=== PATIENT | male | born 1950 | race Caucasian/White ===

== ENCOUNTER 2022-12-27 13:53 | Inpatient (IN) | payer OTHER ==
[~2022-12-27] VITALS: Ht 177.8 cm; Wt 93.6 kg
[2022-12-27 15:37] LABS: Alanine Aminotransferase 23 U/L (7-40); Albumin 4.6 g/dL (3.2-4.8); Alkaline Phosphatase 109 U/L (46-116); Anion Gap 7 (5-15); Aspartate Aminotransferase 15 U/L (13-40); BUN/Creatinine Ratio 13.8 (10.0-20.0); Blood Urea Nitrogen 13 mg/dL (9-23); Calcium 9.6 mg/dL (8.5-10.1); Carbon Dioxide 27 mmol/L (20-30); Chloride 105 mmol/L (98-107); Glucose 96 mg/dL (74-106); Potassium 5.4 mmol/L (3.5-5.1); Sodium 139 mmol/L (136-145)
[2022-12-27 15:38] LABS: Bilirubin, Total 0.5 mg/dL (0.2-1.0)
[2022-12-27 15:41] LABS: Basophils # (auto) 0 10 ^3/uL (0-0.2); Basophils % (auto) 0.7 % (0.0-2.0); Eosinophils # (auto) 0.1 10 ^3/uL (0-0.8); Eosinophils % (auto) 2.3 % (0.0-7.0); Hematocrit 43.3 % (41.0-53.0); Hemoglobin 14.5 g/dL (13.5-17.5); Lymphocytes # (auto) 1.4 10 ^3/uL (0.4-5.4); Lymphocytes % (auto) 24.3 % (10.0-50.0); Mean Corpuscular Hemoglobin 31.6 pg (28.0-32.0); Mean Corpuscular Hgb Conc. 33.3 g/dL (32.0-36.0); Mean Corpuscular Volume 94.9 fL (80.0-100.0); Monocytes # (auto) 0.5 10 ^3/uL (0-1.3); Monocytes % (auto) 9.1 % (0.0-12.0); Neutrophils # (auto) 3.6 10 ^3/uL (1.6-8.6); Neutrophils % (auto) 63.6 % (37.0-80.0); Red Blood Cells 4.57 10^6/uL (4.5-5.90); Red Cell Distribution Width 14.3 % (11.8-14.3); White Blood Cell 5.7 10^3/uL (4.4-10.8)
[2022-12-27 16:15] LABS: Urine Bacteria NONE SEEN /hpf (None Seen); Urine Blood Negative /uL (Negative); Urine Clarity Clear (Clear); Urine Color Yellow (Yellow); Urine Hyaline Cast FEW /lpf (0 - 2); Urine Protein, UAD Negative (Negative); Urine Specific Gravity 1.014 (1.001-1.035); Urine Urobilinogen Normal (Negative); Urine WBC <1 /hpf (0 - 3)
[2022-12-27 21:15] VITALS: PULSE 76; RESP 16; O2SAT 95
[2022-12-27 21:32] LABS: Magnesium 1.8 mg/dL (1.6-2.6)
[2022-12-27] MEDS ORDERED: metroNIDAZOLE 500MG/100ML 100 ML IV ONE (22:00)
[2022-12-27] MEDS ORDERED: FUROSEMIDE 20 MG/2 ML VIAL IV ONE (22:00)
[2022-12-27] MEDS ORDERED: CALCIUM GLUC 1,000mg/50ml-NS 50 ML IV ONE (22:00)
[2022-12-27] MEDS ORDERED: ONDANSETRON HCL 4 MG/2 ML VIAL IV ONE (22:00)
[2022-12-27] MEDS ORDERED: SODIUM CHLORIDE 0.9% 1,000 ML IV ONE ×2 (22:00→22:30)
[2022-12-27] MEDS ORDERED: InsuLIN REG 1unit/0.01ml Soln (100units/ml) IV ONE (22:00)
[2022-12-27] MEDS ORDERED: PIPERACILLIN-TAZOB 3.375GM 100 ML IV ONE (22:00)
[2022-12-27] MEDS ORDERED: DEXTROSE (50%) 50ML SYRG IV ONE (22:00)
[2022-12-27] MEDS ORDERED: fentaNYL CITRATE 100 MCG/2 ML VL IV ONE (22:00)
[2022-12-27] MEDS ORDERED: MORPHINE SULFATE INJ 2 MG/ml SYRG IV PRN (22:30)
[2022-12-27] MEDS ORDERED: ONDANSETRON HCL 4 MG/2 ML VIAL IV PRN ×2 (22:30→23:30)
[2022-12-27] MEDS ORDERED: hydrALAZINE HCL 20 MG/ML VL IV PRN ×2 (22:45→23:30)
[2022-12-27 23:23] LABS: Chloride 104 mmol/L (98-107); Potassium 4.3 mmol/L (3.5-5.1); Sodium 137 mmol/L (136-145)
[2022-12-27 23:24] LABS: Anion Gap 7 (5-15); Calcium 9.5 mg/dL (8.7-10.4); Carbon Dioxide 26 mmol/L (20-30)
[2022-12-27 23:29] LABS: BUN/Creatinine Ratio 10.1 (10.0-20.0); Blood Urea Nitrogen 14 mg/dL (9-23); Glucose 107 mg/dL (74-106)
[2022-12-27] MEDS ORDERED: SODIUM CHLORIDE 0.9% 1,000 ML IV SCH (23:30)
[2022-12-27 23:34] LABS: Prothrombin Time 10.5 sec (9.3-11.8)
[2022-12-27] MEDS: MORPHINE SULFATE INJ 2 MG/ml SYRG IV PRN (23:44)
[2022-12-28] VITALS (8 sets, daily range): BP systolic 131–152; BP diastolic 64–85; PULSE 80–95; RESP 16–19; TEMP 98.3–99; O2SAT 94–98
[2022-12-28] MEDS ORDERED: AMLO1TAB22 PO (05:05)
[2022-12-28] MEDS ORDERED: OME20GT GT (05:05)
[2022-12-28] MEDS ORDERED: METO-158 PO (05:05)
[2022-12-28] MEDS ORDERED: LOSA25TA15 PO (05:05)
[2022-12-28] MEDS ORDERED: PIPERACILLIN-TAZOB 3.375GM 100 ML IV SCH (06:00)
[2022-12-28] MEDS: metroNIDAZOLE 500MG/100ML 100 ML IV SCH ×2 (06:41→21:30)
[2022-12-28 07:26] LABS: Basophils # (auto) 0 10 ^3/uL (0-0.2); Basophils % (auto) 0.6 % (0.0-2.0); Eosinophils # (auto) 0.1 10 ^3/uL (0-0.8); Eosinophils % (auto) 1.6 % (0.0-7.0); Hematocrit 38.6 % (41.0-53.0); Hemoglobin 12.5 g/dL (13.5-17.5); Lymphocytes # (auto) 1.5 10 ^3/uL (0.4-5.4); Mean Corpuscular Hemoglobin 31.3 pg (28.0-32.0); Mean Corpuscular Hgb Conc. 32.5 g/dL (32.0-36.0); Mean Corpuscular Volume 96.4 fL (80.0-100.0); Monocytes # (auto) 0.5 10 ^3/uL (0-1.3); Monocytes % (auto) 7.7 % (0.0-12.0); Neutrophils # (auto) 4.8 10 ^3/uL (1.6-8.6); Neutrophils % (auto) 69.1 % (37.0-80.0); Nucleated Red Blood Cells % 0.1 %; Red Cell Distribution Width 14.3 % (11.8-14.3); White Blood Cell 6.9 10^3/uL (4.4-10.8)
[2022-12-28 07:48] LABS: Alanine Aminotransferase 17 U/L (7-40); Albumin 3.8 g/dL (3.2-4.8); Alkaline Phosphatase 98 U/L (46-116); Anion Gap 9 (5-15); Aspartate Aminotransferase 12 U/L (13-40); BUN/Creatinine Ratio 16.4 (10.0-20.0); Bilirubin, Total 0.3 mg/dL (0.2-1.0); Blood Urea Nitrogen 19 mg/dL (9-23); Calcium 8.5 mg/dL (8.7-10.4); Carbon Dioxide 22 mmol/L (20-30); Chloride 108 mmol/L (98-107); Glucose 101 mg/dL (74-106); Potassium 4.9 mmol/L (3.5-5.1); Sodium 139 mmol/L (136-145); Total Protein 5.8 g/dL (5.7-8.2)
[2022-12-28] MEDS: D5W/SOD CHL 0.45% 1,000 ML IV SCH (11:58)
[2022-12-28] MEDS: cefTRIAXone 1GM/50ML D5W 50 ML IV SCH (11:59)
[2022-12-28] MEDS: MORPHINE SULFATE INJ 2 MG/ml SYRG IV PRN ×2 (12:00→21:19)
[2022-12-28] MEDS ORDERED: metroNIDAZOLE 500MG/100ML 100 ML IV ONE (14:22)
[2022-12-28] MEDS ORDERED: MEPERIDINE HCL (25 MG/ML) 1ML VIAL ONE (15:33)
[2022-12-28] MEDS ORDERED: fentaNYL CITRATE 100 MCG/2 ML VL ONE (15:33)
[2022-12-28] MEDS ORDERED: MIDAZOLAM HCL 2MG/2ML 2ml VIAL (1mg/ml) ONE (15:33)
[2022-12-28] MEDS ORDERED: LIDOCAINE 1%-Mpf/Epinephrine 1:200,000 30ml VIAL ONE (15:46)
[2022-12-28] MEDS ORDERED: LIDOCAINE 2% JELLY 11ml (GLYDO) ONE (16:05)
[2022-12-28] MEDS ORDERED: PROPOFOL 10 MG/ML 20 ML IV ONE (16:27)
[2022-12-28] MEDS ORDERED: DexAMETHasone SOD PHOS 10MG/1ML VIAL INJ ONE (16:27)
[2022-12-28] MEDS ORDERED: SUGAMMADEX 200mg/2ml Vial (100MG/ML) IV ONE (16:40)
[2022-12-28] MEDS ORDERED: ONDANSETRON HCL 4 MG/2 ML VIAL IV PRN (17:00)
[2022-12-28] MEDS ORDERED: MORPHINE SULFATE 4 MG/ML SYR/VIAL IV PRN (17:00)
[2022-12-28] MEDS ORDERED: MIDAZOLAM HCL 2MG/2ML 2ml VIAL (1mg/ml) IV PRN (17:00)
[2022-12-28] MEDS ORDERED: ePHEDrine SULFATE 50 MG/ML AMP IV PRN (17:00)
[2022-12-28] MEDS ORDERED: HYDROmorphone HCL 2 MG/ML VL/or syr ONE (17:01)
[2022-12-28] MEDS: HYDROmorphone HCL 2 MG/ML VL/or syr IV PRN ×4 (17:03→17:41)
[2022-12-28] MEDS: LABETALOL HCL 5 MG/ML 4ML SYRINGE IV PRN ×2 (17:16→17:40)
[2022-12-28 23:00] LABS: INR 1.05 (0.9-1.15)
[2022-12-29] MEDS: MORPHINE SULFATE INJ 2 MG/ml SYRG IV PRN ×2 (01:50→09:35)
[2022-12-29] MEDS: D5W/SOD CHL 0.45% 1,000 ML IV SCH (01:53)
[2022-12-29 05:00] VITALS: BP 147/93; PULSE 107; RESP 20; TEMP 98.6; O2SAT 95
[2022-12-29 05:41] LABS: Basophils # (auto) 0 10 ^3/uL (0-0.2); Basophils % (auto) 0.5 % (0.0-2.0); Eosinophils # (auto) 0 10 ^3/uL (0-0.8); Eosinophils % (auto) 0.5 % (0.0-7.0); Hematocrit 38.5 % (41.0-53.0); Hemoglobin 12.7 g/dL (13.5-17.5); Lymphocytes # (auto) 0.5 10 ^3/uL (0.4-5.4); Lymphocytes % (auto) 6.4 % (10.0-50.0); Mean Corpuscular Hemoglobin 31.6 pg (28.0-32.0); Mean Corpuscular Volume 95.7 fL (80.0-100.0); Monocytes # (auto) 0.1 10 ^3/uL (0-1.3); Monocytes % (auto) 1.2 % (0.0-12.0); Neutrophils # (auto) 6.6 10 ^3/uL (1.6-8.6); Neutrophils % (auto) 91.4 % (37.0-80.0); Nucleated Red Blood Cells % 0.1 %; Red Blood Cells 4.03 10^6/uL (4.5-5.90); Red Cell Distribution Width 14.5 % (11.8-14.3); White Blood Cell 7.2 10^3/uL (4.4-10.8)
[2022-12-29 05:54] LABS: Chloride 107 mmol/L (98-107); Potassium 4.6 mmol/L (3.5-5.1); Sodium 140 mmol/L (136-145)
[2022-12-29 05:55] LABS: Anion Gap 7 (5-15); Carbon Dioxide 26 mmol/L (20-30)
[2022-12-29 05:56] LABS: Calcium 9.2 mg/dL (8.5-10.1)
[2022-12-29 06:01] LABS: BUN/Creatinine Ratio 7.4 (10.0-20.0); Glucose 173 mg/dL (74-106)
[2022-12-29 06:20] LABS: Blood Urea Nitrogen 6 mg/dL (9-23)
[2022-12-29 08:00] VITALS: PULSE 95; RESP 18; O2SAT 94
[2022-12-29 08:30] VITALS: BP 165/86; PULSE 94; RESP 19; TEMP 97.6; O2SAT 97
[2022-12-29] MEDS: metroNIDAZOLE 500MG/100ML 100 ML IV SCH ×2 (09:30→15:34)
[2022-12-29] MEDS: cefTRIAXone 1GM/50ML D5W 50 ML IV SCH (09:31)
[2022-12-29] MEDS ORDERED: PANTOPRAZOLE 40 MG/10 ML VIAL INJ IV SCH (10:00)
[2022-12-29 12:30] VITALS: BP 156/83; PULSE 90; RESP 18; TEMP 97.6; O2SAT 96
[2022-12-29] MEDS ORDERED: OMEP20TA PO (13:29)
[2022-12-29] MEDS ORDERED: IBUP-1454 PO (13:29)
[2022-12-29] MEDS ORDERED: CEPH250C PO (13:29)
[2022-12-29 16:03] VITALS: BP 156/83; PULSE 90; RESP 18; TEMP 97.6; O2SAT 96
== END 2022-12-29 20:30 | disposition home or self-care (01) | DRG 399 ==
LOC: ER 13:53 → OVERFLOW 23:21 → WEST WING 12-28 02:19
PROVIDERS: ADMIT Nurse Practitioner; ATTEND Hospitalist
PROC: 0DTJ4ZZ Resection of Appendix, Percutaneous Endoscopic Approach (ICD-10-PCS; principal; 2022-12-28 16:02)
DX: K35.80 Unspecified acute appendicitis (principal); E86.0 Dehydration; I12.9 Hypertensive chronic kidney disease with stage 1 through stage 4 chronic kidney disease, or unspecified chronic kidney disease; E87.5 Hyperkalemia; R73.9 Hyperglycemia, unspecified; K21.9 Gastro-esophageal reflux disease without esophagitis; N18.1 Chronic kidney disease, stage 1
CPT/HCPCS: 36415; 71045; 74176; 76705; 80048; 80053; 81001; 83605; 83690; 83735; 84484; 85025; 85610; 85730; 86850; 86900; 86901; 93005; 97163; 99291; C9113; G0378; J0696; J1100; J2250; J2405; J2543; J2704; J3490